=== PATIENT | female | born 1990 | race Caucasian/White ===

== ENCOUNTER 2024-07-03 16:16 | Outpatient (CLI) | payer BC | END 2024-07-03 16:17 | disposition home or self-care (01) | LOC: BICRAD 16:16 | PROVIDERS: ATTEND Chiropractor | DX: M51.369 Other intervertebral disc degeneration, lumbar region without mention of lumbar back pain or lower extremity pain (principal); M41.9 Scoliosis, unspecified | CPT/HCPCS: 72110 ==